=== PATIENT | male | born 1955 | race Caucasian/White ===

== ENCOUNTER 2025-03-21 14:11 | Emergency (ER) | payer OTHER, BC ==
[2025-03-21 14:23] VITALS: BP 137/75; PULSE 89; RESP 18; TEMP 97.7; BMI 27.6
[2025-03-21] MEDS ORDERED: BACITRACIN 0.9 GM PACKET ONE (17:31)
== END 2025-03-21 17:37 | disposition home or self-care (01) ==
LOC: JER 14:11
DX: S00.83XA Contusion of other part of head, initial encounter (principal); R11.0 Nausea; W01.198A Fall on same level from slipping, tripping and stumbling with subsequent striking against other object, initial encounter
CPT/HCPCS: 70450-TC; 72125-TC; 99284-25